=== PATIENT | female | born 1995 | race Caucasian/White ===

== ENCOUNTER 2017-04-16 10:49 | Emergency (ER) | payer OTHER ==
--- NOTE | 2017-04-16 11:53 | RAD ---
HISTORY: Right ankle pain and trauma COMPARISONS: None VIEWS: 3, Frontal, lateral, and oblique views of the right ankle FINDINGS: BONE DENSITY: Normal. BONES: There is no displaced fracture. JOINTS: There is no arthropathy. ALIGNMENT: There is no dislocation. SOFT TISSUES: Unremarkable. OTHER FINDINGS: None. IMPRESSION: NO ACUTE OSSEOUS INJURY. IF SYMPTOMS PERSIST, RECOMMEND REPEAT IMAGING.
--- NOTE | 2017-04-16 12:57 | ED ---
Jw Mcmahon Angela, scribed for German Candelario MD on 04/16/17 at 1123 . Lower Extremity - HPI Summary HPI Summary: This pt is a 21 y/o female presenting to [facility] c/o right ankle pain and left knee abrasion s/p inversion injury 40 minutes [employer] SE[employer]. Pt reports she was walking back to her dorm when she stepped in a pothole and twisted her right ankle. She notes she fell but denies LOC or head strike. Pt denies back pain, hip pain. She reports a PMHx of right ankle fracture 3 years ago, but had no surgeries. She states her last tetanus shot was this year and is UTD. - History of Current Complaint Chief Complaint: EDExtremityLower Stated Complaint: RT ANKLE PAIN Time Seen by Provider: 04/16/17 11:09 Hx Obtained From: Patient Hx Last Menstrual Period: 06/03/16 Mechanism Of Injury: Fall From A Standing Position Onset of Pain: Hours Onset/Duration: Hours Pain Intensity: 6 Pain Scale Used: 0-10 Numeric Location: Is Discrete @ - right ankle Associated Signs And Symptoms: Positive: Other - left knee abrasions, right ankle pain. Negative: Weakness, Dizziness, Syncope, Abdominal Pain - Allergies/Home Medications Allergies/Adverse Reactions: Allergies Allergy/AdvReac Type Severity Reaction Status Date / Time No Known Allergies Allergy Verified 04/16/17 11:03 PMH/Surg Hx/FS Hx/Imm Hx Endocrine/Hematology History: Denies: Hx Diabetes Cardiovascular History: Denies: Hx Hypertension Musculoskeletal History: Reports: Other Musculoskeletal History - Right ankle fracture, head injury/syncope 27 sutures. Infectious Disease History: Yes Infectious Disease History: Denies: Traveled Outside the [place] in Last 30 Days - Family History Known Family History: Positive: Diabetes - Grandmother - Social History Alcohol Use: None Substance Use Type: Reports: None Smoking Status (MU): Never Smoked Tobacco Review of Systems Negative: Fever, Chills Eyes: Negative ENT: Negative Cardiovascular: Negative Respiratory: Negative Gastrointestinal: Negative Genitourinary: Negative Positive: Other - right ankle pain Positive: Other - abrasions on left knee Negative: Headache, Weakness, Paresthesia All Other Systems Reviewed And Are Negative: Yes Physical Exam - Summary Physical Exam Summary: The patient is well-nourished in no acute distress. The skin is warm and dry and skin color reflects adequate perfusion. HEENT: The head is normocephalic and atraumatic. The pupils are equal and reactive. The conjunctivae are clear and without drainage. Nares are patent and without drainage. Mouth reveals moist mucous membranes and the throat is without erythema and exudate. The external ears are intact. The ear canals are patent and without drainage. The tympanic membranes are intact. Neck is supple with full range of motion and non-tender. Respiratory: Chest is non-tender. Lungs are clear to auscultation and breath sounds are symmetrical and equal. Cardiovascular: Hear is regular rate and rhythm. There is no murmur or rub auscultated. There is no peripheral edema and pulses are symmetrical and equal. Musculoskeletal: There is no back pain noted. There is good capillary refill. There is no peripheral edema or calf tenderness elicited. There are 3 superficial abrasions/lacerations on the left knee, with 2 abrasions with dirt. There is full range of motion. There is no osseous tenderness. On the right ankle, there is no tenderness in the medial malleolus. There is tenderness on the posterior and inferior aspect of the lateral malleolus. There is no tenderness over the base of the 5th metatarsal. There is full range of motion. There is no ligamentous laxity. The achilles tendon appears intact. Neurological: Patient is alert and oriented to person, place and time. The patient has symmetrical motor strength in all four extremities. Psychiatric: The patient has an appropriate affect and does not exhibit any anxiety or depression. Triage Information Reviewed: Yes Vital Signs On Initial Exam: Initial Vitals Temp Pulse Resp BP Pulse Ox 99.6 F 82 16 117/70 93 04/16/17 10:59 04/16/17 10:59 04/16/17 10:59 04/16/17 10:59 04/16/17 10:59 Vital Signs Reviewed: Yes Diagnostics - Vital Signs Vital Signs Temp Pulse Resp BP Pulse Ox 04/16/17 11:00 86 117/70 97 04/16/17 10:59 99.6 F 82 16 117/70 93 - Laboratory Lab Statement: Any lab studies that have been ordered have been reviewed, and results considered in the medical decision making process. - Radiology Right ankle XR Xray Interpretation: No Acute Changes - IMPRESSION: No acute osseous injury. If symptoms persist, recommed repeat imaging. ED physician has reviewed this radiology report and agrees. Radiology Interpretation Completed By: Radiologist Re-Evaluation - Re-Evaluation First Eval Re-Evaluation Time: 12:10 Comment: I reviewed the CT results with the pt. Lower Extremity Course/Dx - Course Assessment/Plan: Pt is a 21 y/o female presenting to [facility] c/o right ankle pain and left knee abrasion s/p inversion injury 40 minutes [employer]. Pt denies analgesics at this time. XR of right ankle was obtained. XR reveals no acute osseous injury. If symptoms persist, recommed repeat imaging. Pt will be discharged with a gel ankle splint for comfotr. She is advised to follow up in the Health Center in [facility]. - Diagnoses Differential Diagnosis/HQI/PQRI: Positive: Fracture (Closed), Sprain, Other - abrasion/laceration Provider Diagnoses: Right ankle sprain, Abrasion of knee, left Discharge - Discharge Plan Condition: Stable Disposition: HOME Patient Education Materials: Ankle Sprain (ED), Abrasion (ED) [facility] [[facility]] - Additional Instructions: Please follow up in the Health Center at [facility]. Use the gel ankle splint for comfort. Clean the wound a couple of times a day. RETURN TO THE EMERGENCY DEPARTMENT FOR ANY WORSENING OR NEW SYMPTOMS. The documentation as recorded by the Jw rivas Angela accurately reflects the service I personally performed and the decisions made by me, German Candelario MD.
[2017-04-16 13:09] VITALS: BP 118/74
== END 2017-04-16 13:08 | disposition home or self-care (01) ==
LOC: ED 10:49
DX: S80.212A Abrasion, left knee, initial encounter (principal); S93.401A Sprain of unspecified ligament of right ankle, initial encounter; X50.9XXA Other and unspecified overexertion or strenuous movements or postures, initial encounter; Y93.9 Activity, unspecified; Y92.9 Unspecified place or not applicable; W19.XXXA Unspecified fall, initial encounter
CPT/HCPCS: 99283

== ENCOUNTER 2018-12-02 07:33 | Emergency (ER) | payer OTHER ==
--- NOTE | 2018-12-02 08:21 | ED ---
HPI Chest Pain - HPI Summary HPI Summary: Patient is a 23 y/o F presenting to ED with complaints of chest pain and abdominal pain onsetting this morning at around 0600. Pain is located from her chest to around her abdominal area. Per triage, "it feels like someone is pulling my muscles apart and then pushing them back together really quick". She states that she could not find relief in Sx regardless of position. She notes that Sx reduced in severity as patient came to ED and are still less severe than previously at present. However, she still notes that the area is tender to palpitation. She denies belching, bad taste in mouth, N/V/D. She had gone on a 5 hour car ride to [place] this past but reports no cramping , swelling, or pain in her calves. SOB is denied. Patient denies taking any medications for the Sx, she reports no prior episodes of such Sx. No PMHx, no PSHx is reported. No tobacco, no OCP. She notes that she has fallen of horses multiple times previously and is currently in physical therapy for a shoulder as a result of falling from a horse seven months ago but denies any trauma in the past week. Patient denies any abnormal movement at her most recent physical therapy session. She has no regular medications and is not on control, denies chance of , denies smoking cigarettes, alcohol and substance usage. 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 She notes that she has finals next week but denies abnormal stress. She did not sleep in a new environment or abnormal position last night. She is present in room with a male director [employer] database named Luciano. On triage, pain is rated 7/ 10. Home medications and allergies are reviewed. - History of Current Complaint Chief Complaint: EDAbdPain Time Seen by Provider: 12/02/18 07:54 Hx Obtained From: Patient Hx Last Menstrual Period: 06/03/16 Onset/Duration: Started Hours Ago - onset 0600 this morning, Still Present Timing: Constant, Lasting Hours - onset 0600 this morning Initial Severity: Severe Current Severity: Severe - 7/10 Pain Intensity: 7 Pain Scale Used: 0-10 Numeric - 7/10 Character: Other: - Per triage, ""it feels like someone is pulling my muscles apart and then pushing them back together really quick" Aggravating Factor(s): Nothing Alleviating Factor(s): Nothing Associated Signs and Symptoms: Positive: Chest Pain, Abdominal Pain, Other: - no diarrhea, no belching, no bad taste in mouth, no recent trauma. Negative: Recent Stress, Shortness of Breath, Swelling, Nausea, Calf Pain/Swelling - or cramping, Vomiting - Allergy/Home Medications Allergies/Adverse Reactions: Allergies Allergy/AdvReac Type Severity Reaction Status Date / Time No Known Allergies Allergy Verified 12/02/18 07:38 Home Medications: Home Medications Loratadine/Pseudoephedrine [Claritin-D 24 Hour Tablet] 1 each PO DAILY PRN 12/02 [History Confirmed 12/02/18] PMH/Surg Hx/FS Hx/Imm Hx Previously Healthy: Yes Endocrine/Hematology History: Denies: Hx Anticoagulant Therapy, Hx Diabetes Cardiovascular History: Denies: Hx Hypertension Musculoskeletal History: Reports: Other Musculoskeletal History - Right ankle fracture, head injury/syncope 27 sutures. Sensory History: Denies: Hx Legally Blind, Hx Deafness Opthamlomology History: Denies: Hx Legally Blind EENT History: Denies: Hx Deafness Infectious Disease History: No Infectious Disease History: Denies: Traveled Outside the [place] in Last 30 Days - Family History Known Family History: Positive: Diabetes - Grandmother - Social History Occupation: Student Lives: Dormitory/Roommates Alcohol Use: None Substance Use Type: Reports: None Smoking Status (MU): Never Smoked Tobacco Review of Systems Constitutional: Negative Positive: Chest Pain Negative: Shortness Of Breath Gastrointestinal: Other - NEGATIVE - BAD TASTE IN MOUTH, BELCHING Positive: Abdominal Pain - epigastric. Negative: Vomiting, Diarrhea, Nausea Musculoskeletal: Other - NEGATIVE - CALF PAIN, CALF CRAMPING, RECENT TRAUMA Negative: Edema - CALVES Psychological: Other - NEGATIVE - RECENT STRESS All Other Systems Reviewed And Are Negative: Yes Physical Exam - Summary Physical Exam Summary: Vital Signs Reviewed: Yes A+Ox3, no distress Eyes: Conjunctiva Clear, CHELSY. EOM intact and full ENT: Hearing grossly normal TM x 2 clear, mmoist, uvula midline, no exudate, no erythema Neck: Positive: Supple Respiratory: Positive: No respiratory distress, No accessory muscle use + CTA throughout no w/r mild discomfort with direct palpation along sternal borders Cardiovascular: RRR nl s1, s2 no m/r CBT <2 sec abd soft + BS nd, + TTP epigastric discomfort with direct palp, no guarding, no distension, No CVA Musculoskeletal Exam: REINOSO x 4 without difficulty Strength Intact, ROM Intact Neurological: Positive: Alert, + sensation throughout Psychological: Positive: Normal Response To Family Skin: Positive: no rash, no ecchymosis Triage Information Reviewed: Yes Vital Signs On Initial Exam: Initial Vitals Temp Pulse Resp BP Pulse Ox 97.5 F 88 17 140/95 97 12/02/18 07:34 12/02/18 07:34 12/02/18 07:34 12/02/18 07:34 12/02/18 07:34 Vital Signs Reviewed: Yes Diagnostics - Vital Signs Vital Signs Temp Pulse Resp BP Pulse Ox 12/02/18 07:34 97.5 F 88 17 140/95 97 - Laboratory Result Diagrams: 12/02/18 08:30 12/02/18 08:30 Lab Statement: Any lab studies that have been ordered have been reviewed, and results considered in the medical decision making process. - EKG No standard instances Cardiac Rate: NL - 84 12/02/18 8:02am EKG Rhythm: Sinus Rhythm ST Segment: Normal Ectopy: None EKG Comparison: No Significant Change 0802 Cardiac Rate: NL - 84 BPM, 12/02/18 8:02am EKG Rhythm: Sinus Rhythm ST Segment: Normal Ectopy: None EKG Comparison: No Significant Change Re-Evaluation - Re-Evaluation First Eval Re-Evaluation Time: 09:23 Change: Improved Comment: Patient reports improvement of Sx, labs are normal, awaiting D-dimer. d/w pt dietary modifications. pepcid. Maalox prn. will give po here Second Eval Re-Evaluation Time: 10:03 Comment: ddimer neg. will discharge. pt comfortabe and in agreement with plan. pt declined offer to talk to parent (College student) Chest Pain Course/Dx - Course Course Of Treatment: Pt presents with pain from epigastric area to throat. States was sharp and crampy this am - unable to get comfortable. Pt states sx markedly improved. No h.o similar No sob, nausea, vomiting. VSS. Pt in no obvious distress. Pt with mild epigastric and parasternal discomfort with palpation. EKG unremarkable. I had a long conversation with pt regarding differential - low suspicion for cardiac, PE. suspect gastritis/gerd. will check labs to include lipase, trop, ddimer. will give toradol, maalox. continue to monitor. Pt comfortable and in agreement with plan. BP mildly elevated - related to pt's emergency visit - Diagnoses Provider Diagnoses: Epigastric pain, Chest pain of uncertain etiology Discharge - Sign-Out/Discharge Documenting (check all that apply): Patient Departure - discharge Patient Received Moderate/Deep Sedation with Procedure: No - Discharge Plan Condition: Stable Disposition: HOME Prescriptions: Famotidine TAB* [Pepcid 20 MG TAB*] 20 mg PO DAILY #12 tab Patient Education Materials: Epigastric Pain (ED), Chest Wall Pain (ED) Forms: *School Release Referrals: [facility] @ [Outside] Additional Instructions: - stay well hydrated. Drink plenty of non-alcoholic, non-caffinated beverages - It is recommended you take pepcid, acid reducing medication, twice daily as prescribed - eat small, frequent meals - avoid spicy food, acidic food, tomato based foods - okay to alternate ibuprofen (Advil, Motrin) and tylenol every 3 hours for pain or fever - get plenty of restful sleep - follow-up with the health care center or return here with any questions or concerns - Billing Disposition and Condition Condition: STABLE Disposition: Home - Attestation Statements Document Initiated by Carey: Yes Documenting Scribe: JEN MONTGOMERY Provider For Whom Carey is Documenting (Include Credential): ADELINE SIERRA MD Scribe Attestation: JEN Mcmahon, scribed for ADELINE SIERRA MD on 12/02/18 at 1106. Scribe Documentation Reviewed: Yes Provider Attestation: The documentation as recorded by the JEN rivas accurately reflects the service I personally performed and the decisions made by me, ADELINE SIERRA MD Status of Scribe Document: Viewed
[2018-12-02] MEDS: Ketorolac INJ* 30 MG/ML 1 ML VIAL IV PUSH ONE (08:37)
[2018-12-02] MEDS: NS 0.9% 1000 ML** 1,000 ML IV ONE (08:37)
[2018-12-02] MEDS: Al Hydrox/Mg Hydrox/Simet LIQ* 30 ML UDC PO ONE (08:37)
[2018-12-02 08:57] LABS: ABS Basophils 0 10^3/ul (0-0.2); ABS Eosinophils 0.2 10^3/ul (0-0.6); ABS Lymphocytes 2.5 10^3/ul (1.0-4.8); ABS Monocytes 0.7 10^3/ul (0-0.8); ABS Neutrophils 4.5 10^3/ul (1.5-7.7); ABS Nucleated RBC 0 10^3/ul; Eosinophil % 2.1 %; Hematocrit 39 % (33-41); Hemoglobin 13.1 g/dL (12.0-16.0); Lymphocyte % 32.1 %; Mean Corpuscular HGB Conc 34 g/dL (31-36); Mean Corpuscular Hemoglobin 30 pg (27-31); Mean Corpuscular Volume 91 fL (80-97); Mean Platelet Volume 9.1 fL (7.4-10.4); Nucleated Red Blood Cells % 0; Platelet Count 282 10^3/uL (150-450); Red Blood Count 4.31 10^6 /uL (3.70-4.87); Red Cell Distribution Width 12 % (10.5-15); White Blood Count 7.9 10^3/uL (3.5-10.8)
[2018-12-02 09:12] LABS: ALT 14 U/L (7-52); Albumin 4.5 g/dL (3.2-5.2); Albumin/Globulin Ratio 1.6 (1-3); Alkaline Phosphatase 67 U/L (34-104); BUN/Creatinine Ratio 12.2 (8-20); Blood Urea Nitrogen 9 mg/dL (6-24); CO2 Carbon Dioxide 27 mmol/L (22-32); Calcium 9.5 mg/dL (8.6-10.3); Chloride 105 mmol/L (101-111); EGFR African American 119.9 (>60); EGFR Non-African American 99.1 (>60); Globulin 2.8 g/dL (2-4); Glucose 98 mg/dL (70-100); Magnesium 2.1 mg/dL (1.9-2.7); Sodium 139 mmol/L (135-145); Total Protein 7.3 g/dL (6.4-8.9)
[2018-12-02 09:14] LABS: Anion Gap 7 mmol/L (2-11)
[2018-12-02 10:48] VITALS: BP 118/63
== END 2018-12-02 10:15 | disposition home or self-care (01) ==
LOC: ED 07:33
DX: R07.9 Chest pain, unspecified (principal); R10.13 Epigastric pain
CPT/HCPCS: 36415; 80053; 83690; 83735; 84484; 85025; 85379; 93005; 96361; 96374; 99283; A9270-GY; J1885